=== PATIENT | female | born 1960 | race Caucasian/White ===

== ENCOUNTER 2022-04-20 15:28 | Emergency (ER) | payer SELFPAY ==
[~2022-04-20] VITALS: Ht 152.4 cm; Wt 36.1 kg
[~2022-04-20 15:28] MED LIST: ALBU2.5V14 NEB; AMIT25TA PO; APIX5TAB PO; ASCO500C9 PO; DEXL60CA2 PO; DEXT5TAB PO; DICL75TA PO; DOCU-158 PO; FERR325T14 PO; FLUT1DIS3 IH; LEVO75TA5 PO; LEVO88TA4 PO; LORA0.5T PO; MELO15TA23 PO; SERT100T PO; SIMV20TA18 PO; SUMA100T4 PO; TRAM50TA PO
[2022-04-20 16:26] LABS: BASO # 0.2 x10^3/uL (0.0-0.2); BASO % 1 % (0-3); EOS % 0 % (0-3); HEMATOCRIT 32.2 % (36.0-47.0); HEMOGLOBIN 10.4 g/dL (12.0-15.5); LYMPH # 0.7 x10^3/uL (1.0-4.8); LYMPH % 2 % (24-48); MEAN CORPUSCULAR HEMOGLOBIN 30 pg (25-35); MEAN CORPUSCULAR HGB CONC 32 g/dL (31-37); MEAN CORPUSCULAR VOLUME 94 fL (79-100); MONO # 1.6 x10^3/uL (0.0-1.1); MONO % 5 % (0-9); NEUT # 30.2 x10^3/uL (1.8-7.7); NEUT % 93 % (31-73); PLATELET COUNT 618 x10^3/uL (140-400); RED BLOOD COUNT 3.43 x10^6/uL (3.50-5.40); RED CELL DISTRIBUTION WIDTH 18.3 % (11.5-14.5); WHITE BLOOD COUNT 32.6 x10^3/uL (4.0-11.0)
[2022-04-20] MEDS ORDERED: IV NORMAL SALINE 1000ML BAG 1,000 ML IV STA (16:29)
[2022-04-20] MEDS ORDERED: IV NORMAL SALINE 1000ML BAG 1,000 ML IV ONE (16:30)
[2022-04-20] MEDS ORDERED: VANCOMYCIN 1.25 GM in IV DEXTROSE 5% 250 ML IV ONE (16:30)
[2022-04-20 16:34] LABS: PROTHROMBIN TIME PATIENT 17.9 SEC (11.7-14.0)
[2022-04-20] MEDS ORDERED: CEFEPIME HCL IV Push 1 GM VIAL. IVP ONE (16:45)
[2022-04-20] MEDS ORDERED: PIPERACILLIN/TAZOBACTAM 3.375 GM in IV NORMAL SALINE 50ML 50 ML IV ONE (16:45)
--- NOTE | 2022-04-20 16:45 | RAD ---
XR CHEST 1V History: Hypothermia, altered mental status, possible sepsis Comparison: 08/20/2020 Technique: Portable AP radiograph of the chest. Findings: The lungs are adequately inflated there is subtle increased interstitial opacity throughout the lungs . No focal consolidation. No pleural effusion or pneumothorax. Cardiac silhouette there is normal in size. Calcification of the aortic arch. No acute osseous abnormality. Impression: 1. Diffuse increased interstitial opacities may represent atypical infectious process or interstitia l edema. Electronically signed by: Germain Cardoza MD (04/20/2022 4:43 PM) [id number]
--- NOTE | 2022-04-20 16:50 | RAD ---
CT HEAD INDICATION: Altered mental status COMPARISON: None Available. Exposure: One or more of the following individualized dose reduction techniques were utilized for thi s examination: 1. Automated exposure control 2. Adjustment of the mA and/or kV according to patient size 3. Use of iterative reconstruction technique TECHNIQUE: 5 mm contiguous axial images were obtained from the skull base to the vertex in both bone and soft tissue algorithm. FINDINGS: No abnormal attenuation within the brain parenchyma. No evidence of acute intracranial hemorrhage. No extra-axial fluid collections. No mass effect or midline shift. Ventricular size is appropriate. Basal cisterns are patent. No fractures identified.Allen-white differentiation is preserved.Globes and orbits are within normal l imits. Paranasal sinuses and mastoid air cells are clear. IMPRESSION: No acute intracranial findings. Electronically signed by: Bryce Alejandra MD (04/20/2022 4:48 PM) [id number]
[2022-04-20 16:58] LABS: % BANDS 6 % (0-9); % LYMPHS 6 % (24-48); % MONOS 5 % (0-10); % SEGS 83 % (35-66); NUCLEATED RBC 1; PLT ESTIMATE INCREASED (ADEQUATE)
[2022-04-20 16:59] LABS: ANISOCYTOSIS SLIGHT
[2022-04-20 17:01] LABS: ALBUMIN 3.4 g/dL (3.4-5.0); ALK PHOS 110 U/L (46-116); ALT (SGPT) 18 U/L (14-59); ANION GAP 30 (6-14); AST (SGOT) 29 U/L (15-37); BLOOD UREA NITROGEN 42 mg/dL (7-20); CALCIUM 7.4 mg/dL (8.5-10.1); CHLORIDE 101 mmol/L (98-107); CREATINE KINASE 397 U/L (26-192); CREATININE 2.9 mg/dL (0.6-1.0); DIRECT BILIRUBIN < 0.1 mg/dL (0.0-0.2); GFR 16.5; GLUCOSE 161 mg/dL (70-99); MAGNESIUM 2.6 mg/dL (1.8-2.4); SODIUM 138 mmol/L (136-145); TOTAL BILIRUBIN 0.1 mg/dL (0.2-1.0)
[2022-04-20 17:03] LABS: POTASSIUM 2.6 mmol/L (3.5-5.1)
[2022-04-20 17:04] LABS: CARBON DIOXIDE 7 mmol/L (21-32)
[2022-04-20 17:28] LABS: THYROID STIM HORMONE (TSH) 0.531 uIU/mL (0.358-3.74)
[2022-04-20 17:42] LABS: BARBITURATES NEG (NEG); BENZODIAZEPINES NEG (NEG); CANNABINOIDS NEG (NEG); COCAINE NEG (NEG); METHADONE NEG (NEG); OPIATES NEG (NEG); PHENCYCLIDINE NEG (NEG)
[2022-04-20 17:43] LABS: BACTERIA,URINE MANY /HPF (0-FEW); WBC,URINE 20-40 /HPF (0-4)
[2022-04-20] MEDS ORDERED: LEVOTHYROXINE SODIUM IV STA (17:48)
[2022-04-20] MEDS ORDERED: NORMAL SALINE IV STA (17:48)
[2022-04-20 17:53] LABS: INFLUENZA A PATIENT NEGATIVE (NEGATIVE); INFLUENZA B PATIENT NEGATIVE (NEGATIVE)
--- NOTE | 2022-04-20 17:57 | PHYS DOC ---
Past Medical History Smoking Status: Current Every Day Smoker General Adult EDM: Chief Complaint: WEAKNESS/GENERALIZED HPI: HPI: Patient is a 61 year old female with a past medical history of hypothyroidism on levothyroxine, multiple PEs with an IVC filter not on anticoagulation secondary to history of bleeding stomach ulcer. COPD and pack-a-day smoking history. Multiple psychiatric diagnoses on antidepression antianxiety medications. She presents with subacute mental status change. As per patient's she was not quite herself beginning 3 days ago with hallucinations, increasing confusion, odd behavior and then today severe ataxia with an inability walk without falling down. As per family the patient has not been taking any of her medications in the past month including her thyroid medication. They brought the patient by private car, on arrival she is nearly comatose, only responding to deep sternal rub and unable to answer questions appropriately. Patient is hypothermic to 95.3 rectally. Review of Systems: Review of Systems: unable to provide ROS due to mental status Heart Score: C/O Chest Pain: N/A Risk Factors: Risk Factors: DM, Current or recent (<one month) smoker, HTN, HLP, family history of CAD, obesity. Risk Scores: Score 0 - 3: 2.5% MACE over next 6 weeks - Discharge Home Score 4 - 6: 20.3% MACE over next 6 weeks - Admit for Clinical Observation Score 7 - 10: 72.7% MACE over next 6 weeks - Early Invasive Strategies Current Medications: Current Medications Medications (Trade) Dose Ordered Sig/Damon Start Time Stop Time Status Last Admin Dose Admin Cefepime HCl (Maxipime) 1 gm 1X ONCE 04/20/22 16:45 04/20/22 16:46 DC 04/20/22 17:28 1 GM Meropenem 1 gm/ Sodium Chloride 100 ml @ 200 mls/hr Q8HRS 04/20/22 22:00 04/20/22 16:37 DC Piperacillin Sod/ Tazobactam Sod 3.375 gm/Sodium Chloride 50 ml @ 100 mls/hr 1X ONCE 04/20/22 16:45 04/20/22 16:41 DC Sodium Chloride 1,000 ml @ 125 mls/hr 1X ONCE 04/20/22 16:30 04/21/22 00:29 Vancomycin HCl 1.25 gm/Dextrose 250 ml @ 166.667 mls/hr 1X ONCE 04/20/22 16:30 04/20/22 17:59 04/20/22 17:28 166.667 MLS/HR Allergies: Allergies: Allergies Coded Allergies Type Severity Reaction Last Updated Verified Penicillins Allergy Intermediate unknown 08/22/20 Yes Physical Exam: PE: Constitutional: cacechia, unresponsive to voice or touch, minimally responsive to pain HENT: Normocephalic, atraumatic, bilateral external ears normal, oropharynx moist, no oral exudates, nose normal. [] Eyes: 3mm pupils bilaterally, not tracking movement, unable to assess EOM Neck: Supple, no stridor. [] Cardiovascular:Heart rate regular rhythm, no murmur [] Lungs & Thorax: Bilateral breath sounds clear to auscultation [] Abdomen: Bowel sounds normal, soft, no tenderness, no masses, no pulsatile masses. [] Skin: Warm, dry, no erythema, no rash. [] Back: No tenderness, no CVA tenderness. [] Extremities: No tenderness, no cyanosis, no clubbing, ROM intact, no edema. [] Neurologic: Alert and oriented X 3, normal motor function, normal sensory function, no focal deficits noted. [] Psychologic: Affect normal, judgement normal, mood normal. [] Current Patient Data: Labs: Laboratory Tests Test 04/20/22 15:39 04/20/22 15:40 04/20/22 17:29 Glucose (Fingerstick) 164 mg/dL (70-99) H White Blood Count 32.6 x10^3/uL (4.0-11.0) H Red Blood Count 3.43 x10^6/uL (3.50-5.40) L Hemoglobin 10.4 g/dL (12.0-15.5) L Hematocrit 32.2 % (36.0-47.0) L Mean Corpuscular Volume 94 fL (79-100) Mean Corpuscular Hemoglobin 30 pg (25-35) Mean Corpuscular Hemoglobin Concent 32 g/dL (31-37) Red Cell Distribution Width 18.3 % (11.5-14.5) H Platelet Count 618 x10^3/uL (140-400) H Neutrophils (%) (Auto) 93 % (31-73) H Lymphocytes (%) (Auto) 2 % (24-48) L Monocytes (%) (Auto) 5 % (0-9) Eosinophils (%) (Auto) 0 % (0-3) Basophils (%) (Auto) 1 % (0-3) Neutrophils # (Auto) 30.2 x10^3/uL (1.8-7.7) H Lymphocytes # (Auto) 0.7 x10^3/uL (1.0-4.8) L Monocytes # (Auto) 1.6 x10^3/uL (0.0-1.1) H Eosinophils # (Auto) 0.0 x10^3/uL (0.0-0.7) Basophils # (Auto) 0.2 x10^3/uL (0.0-0.2) Segmented Neutrophils % 83 % (35-66) H Band Neutrophils % 6 % (0-9) Lymphocytes % 6 % (24-48) L Monocytes % 5 % (0-10) Nucleated Red Blood Cells 1 Platelet Estimate Increased (ADEQUATE) Anisocytosis Slight Prothrombin Time 17.9 SEC (11.7-14.0) H Prothrombin Time INR 1.5 (0.8-1.1) H Activated Partial Thromboplast Time 44 SEC (24-38) H Sodium Level 138 mmol/L (136-145) Potassium Level 2.6 mmol/L (3.5-5.1) *L Chloride Level 101 mmol/L (98-107) Carbon Dioxide Level 7 mmol/L (21-32) *L Anion Gap 30 (6-14) H Blood Urea Nitrogen 42 mg/dL (7-20) H Creatinine 2.9 mg/dL (0.6-1.0) H Estimated GFR (Cockcroft-Gault) 16.5 Glucose Level 161 mg/dL (70-99) H Calcium Level 7.4 mg/dL (8.5-10.1) L Magnesium Level 2.6 mg/dL (1.8-2.4) H Total Bilirubin 0.1 mg/dL (0.2-1.0) L Direct Bilirubin < 0.1 mg/dL (0.0-0.2) Aspartate Amino Transferase (AST) 29 U/L (15-37) Alanine Aminotransferase (ALT) 18 U/L (14-59) Alkaline Phosphatase 110 U/L (46-116) Creatine Kinase 401 U/L (26-192) H Creatine Kinase MB (Mass) 12.4 ng/mL (0.0-3.6) H Creatine Kinase MB Relative Index 3.1 % (0-4) Troponin I High Sensitivity 13 ng/L (4-50) VN-Oif-U-Type Natriuretic Peptide 56118 pg/mL (0-124) H Total Protein 7.0 g/dL (6.4-8.2) Albumin 3.4 g/dL (3.4-5.0) Thyroid Stimulating Hormone (TSH) 0.531 uIU/mL (0.358-3.74) Free Triiodothyronine (T3) pg/mL 0.64 pg/mL (2.18-3.98) L Urine Collection Type U cath Urine Color (Auto) Light orange Urine Turbidity Turbid Urine pH (Auto) 6.0 (<5.0-8.0) Urine Specific [place] 1.013 (1.000-1.030) Urine Protein (Auto) 200 mg/dL (Negative) Urine Glucose (Auto)(UA) Negative mg/dL (Negative) Urine Ketones (Auto) Negative mg/dL (Negative) Urine Blood (Auto) Large (Negative) Urine Nitrite Negative (Negative) Urine Bilirubin (Auto) Negative (Negative) Urine Urobilinogen (Auto) Normal mg/dL (Normal) Urine Leukocyte Esterase (Auto) Large (Negative) Urine RBC 11-20 /HPF (0-2) Urine WBC 20-40 /HPF (0-4) Urine Bacteria Many /HPF (0-FEW) Urine Mucus Slight /LPF Laboratory Tests 04/20/22 15:40 Laboratory Tests 04/20/22 15:40 Vital Signs: Vital Signs Date Time Temp Pulse Resp B/P (MAP) Pulse Ox O2 Delivery O2 Flow Rate FiO2 04/20/22 17:37 97.7 97.7 EKG: EKG: EKG done at 1540, sinus rhythm with a rate of 69, prolonged QT of 480, normal axis, nonspecific T wave changes, interventricular conduction delay, no ST faith nges. Radiology/Procedures: Radiology/Procedures: CT head without contrast and portable chest x-ray [] Impression: No acute findings on CT head, portable chest x-ray with bilateral interstitial consolidations, atypical pneumonia versus fluid overload Course & Med Decision Making: Course & Med Decision Making Pertinent Labs and Imaging studies reviewed. (See chart for details) Based on history and presentation concerns for sepsis, drug overdose, stroke, myxedema coma. Patient was initially started on IV fluid bolus and antibiotics to cover for possible sepsis given that she had an elevated white blood cell count of 34, hypothermia and altered mental status. Patient's lung sounds became increasingly crackly and her BNP returned at 11,000 so fluids were stopped at 500 cc. Patient's chest x-ray consistent with possible fluid overload, TS H normal but T30.5 And I suspect the patient is in fact in myxedema coma. Patient likely exhibiting cardiogenic shock secondary to same. Patient given Narcan without response. Discussed the case with Dr. Culver, hospitalist covering admissions [facility] who feels the patient be better cared for at a higher level, discussed the case with transfer center at [facility] and I am awaiting callback. Will order IV levothyroxine and hydrocortisone for myxedema coma and adrenal insufficiency. Barrera was placed with no urine output, creatinine 2.9 which appears to be up from her baseline of less than 1. Patients family, sister (Jody) at [phone] and her (Kai) [phone] were updated and are available to provide hx Discussed case with Elsa at the transfer center, requesting the patient to get narcan, amp of bicarb and results of our blood gas, will obtain those values and call back. Patient may need to be intubated prior to transport. Patient given 2mg of iv narcan w/o response, lactate normal, ABG shows PH of 7.2, pCO2 20, HCO3 8. Patient received an amp of bicarb and 200mcg of T4. Patients mental status began to improve after T4, GCS now 9. Patients temp improving with bear hugger but BP starting to fall, as low as 80 systolic, IVF was resumed at 200/hr. Case discussed and accepted by ICU at , Dr. Call, will transfer JAYSON. At this time patient maintaining her oxygen on 2L nc, protecting her own airway, will not intubate prior to transfer unless that changes. Patient received 35min of critical care time, including discussing the case with other physicians, reviewing old notes, discussing hx with family, bedside care not including procedures. patients condition was life threatening and could have lead to or permanent disability. Dragon Disclaimer: Dragon Disclaimer: This electronic medical record was generated, in whole or in part, using a voice recognition dictation system. Departure Departure Impression: Primary Impression: Myxedema coma Disposition: 02 SHORT TERM HOSPITAL Condition: CRITICAL (Patient being transfered to [facility]) Referrals: LETTY ROONEY MD (PCP) MARCIN POLANCO MD April 20, 2022 17:57
[2022-04-20] MEDS ORDERED: HYDROCORTISONE SOD SUCC/PF 100 MG/2 ML VIAL. IVP ONE (18:00)
[2022-04-20 18:08] LABS: AMPHETAMINE/METHAMPHETAMINE POS (NEG)
[2022-04-20] MEDS ORDERED: NALOXONE 2 MG/2 ML DISP.SYRIN. IV ONE (18:30)
[2022-04-20] MEDS ORDERED: SODIUM BICARB ADULT 8.4% 50 MEQ/50 ML DISP.SYRIN. IV ONE (18:45)
[2022-04-20 19:10] LABS: BASE EXCESS ABG -18 mmol/L (-3-3); HCO3 ABG 8 mmol/L (21-28); PO2 ABG 99 mmHg (65-108); SAT O2 ABG 97 % (92-99)
[2022-04-20 19:18] LABS: PCO2 ABG 20 mmHg (35-46)
[2022-04-20 19:19] LABS: FIO2 ABG 21
[2022-04-20 20:28] VITALS: BP 117/63
[2022-04-20] MEDS ORDERED: MEROPENEM 1 GM in IV NORMAL SALINE 100ML 100 ML IV SCH (22:00)
== END 2022-04-20 20:50 | disposition short-term general hospital (02) ==
LOC: ER 15:28
DX: E03.5 Myxedema coma (principal); E03.9 Hypothyroidism, unspecified; F17.200 Nicotine dependence, unspecified, uncomplicated; Z20.822 Contact with and (suspected) exposure to COVID-19; Z86.711 Personal history of pulmonary embolism; Z79.890 Hormone replacement therapy; Z88.0 Allergy status to penicillin
CPT/HCPCS: 36415; 70450; 71045; 80048; 80076; 80307; 81001; 82550; 82553; 82805; 82962; 83605; 83735; 83880; 84439; 84443; 84481; 84484; 85007; 85025; 85610; 85730; 87040; 87086; 87428; 96361; 96365; 96367; 96375; 99291; J0692; J1720; J2310; J3370; J3490; J7030; J7060; 87077; 87186